=== PATIENT | male | born 1955 | race African-American/Black ===

== ENCOUNTER 2024-11-07 12:51 | Emergency (ER) | payer MEDICARE, MEDICAID ==
[~2024-11-07] VITALS: Ht 170.2 cm; Wt 77.9 kg
--- NOTE | 2024-11-07 13:38 | ED.PDOC ---
[place]. trauma (HPI) HPI Comments A 69 YEAR OLD MALE PRESENTS TO THE ED WITH COMPLAINT OF NOSE PAIN, JAW PAIN, HEADACHE, AND RIGHT HAND PAIN S/P FALL. PATIENT STATES HE WAS JOGGING AND THEN ACCIDENTALLY TRIPPED AND FELL FORWARD AND HIS NOSE AND JAW ON THE GROUND. PATIENT REPORTS HE IS NOW EXPERIENCING NOSE PAIN, JAW PAIN, A HEADACHE, AND RIGHT HAND PAIN. PATIENT DENIES NECK INJURY, LOC, FEVER, CHILLS, SHORTNESS OF BREATH, CHEST PAIN, ABDOMINAL PAIN, NAUSEA, VOMITING, HEADACHE, OR OTHER COMPLAINTS. NO OTHER SYMPTOMS OR MODIFYING FACTORS AT THIS TIME. PATIENT IS ALERT, ORIENTED X 4, AND HAS STEADY GAIT. Chief Complaint: Fall Injury Time Seen by MD: 12:56 Reviewed notes: Nurses Notes, Medications, Allergies Allergies: Coded Allergies: NO KNOWN ALLERGIES (Unverified , 11/07/24) Home Meds Active Scripts Amoxicillin & Pot Clavulanate (AUGMENTIN TABLET) 875 Mg Tb, 875 MG PO BID for 10 Days, #20 TAB Prov:SHAHNAZ PINA 11/07/24 Information Source: Patient Mode of Arrival: Ambulatory Severity: Moderate Timing: Days Duration: Since onset, Days Prehospital treatment: None Location: Face, (R) Hand, Mouth, Nose, Other (JAW) Location of laceration: None Mechanism: Fall Associated signs and symtoms: None Past Medical History PAST MEDICAL HISTORY: Denies Past Medical History (Other): NASAL BONE FX Surgical History: Denies all surgeries Family History Family History: Reviewed,noncontributory to illness Social History Smoker: Non-Smoker Alcohol: Denies ETOH Use Drugs: Denies Drug Use Lives In: Home Constitutional: denies: chills, diaphoresis, fatigue, fever, malaise, sweats, weakness, others EENTM: reports: nose pain, others (LEFT SIDE FACIAL PAIN AND LIPS PAIN ); denies: blurred vision, double vision, ear bleeding, ear discharge, ear drainage, ear pain, ear ringing, eye pain, eye redness, hearing loss, mouth pain, mouth swelling, nasal discharge, nose bleeding, nose congestion, photophobia, tearing, throat pain, throat swelling, voice changes Respiratory: denies: cough, hemoptysis, orthopnea, SOB at rest, shortness of breath, SOB with excertion, stridor, wheezing, others Cardiovascular: denies: chest pain, dizzy spells, diaphoresis, Dyspnea on exertion, edema, irregular heart beat, left arm pain, lightheadedness, palpitations, PND, syncope, others Gastrointestinal: denies: abdomen distended, abdominal pain, blood streaked bowels, constipated, diarrhea, dysphagia, difficulty swallowing, hematemesis, melena, nausea, poor appetite, poor fluid intake, rectal bleeding, rectal pain, vomiting, others Genitourinary: denies: burning, dysuria, flank pain, frequency, hematuria, incontinence, penile discharge, penile sore, pain, testicle pain, testicle swelling, urgency, others Neurological: denies: dizziness, fainting, headache, left sided numbness, left sided weakness, numbness, paresthesia, pre-existing deficit, right sided numbness, right sided weakness, seizure, speech problems, tingling, tremors, weakness, others Musculoskeletal: denies: back pain, gout, joint pain, joint swelling, muscle pain, muscle stiffness, neck pain, others Integumetry: reports: lesions, wounds; denies: bruises, change in color, change in hair/nails, dryness, laceration, lumps, rash, others Allergic/Immunocompromised: denies: Difficulty Healing, Frequent Infections, Hives, Itching, others Hematologic/Lymphatic: denies: anemia, blood clots, easy bleeding, easy bruising, swollen glands, others Endocrine: denies: excessive hunger, excessive sweating, excessive thirst, excessive urination, flushing, intolerance to cold, intolerance to heat, unexplained weight gain, unexplained weight loss, others Psychiatric: denies: anxiety, bipolar disorder, depression, hopeless, panic disorder, schizophrenia, sleepless, suicidal, others All Other Systems: Reviewed and Negative Physical Exam General Appearance: No Apparent Distress, Normal HEENT: PERRL/EOMI, Pharynx Normal, Sinuses (TENDERNESS LEFT MAXILLARY SINUSES WITH MILD SWELLING ON LEFT FACE, NO DEFORMITY. ), TMs Normal, Other (BONY TENDERNESS AND SWELLING ON NOSE, MILD NOSE BLEEDING, NO DEFORMITY. PUNCTURE WOUND INSIDE UPPER AND LOWER LIP, NO BLEEDING AND SWELLING. ) Neck: Full Range of Motion, Non-Tender, Normal, Normal Inspection Respiratory: Chest Non-Tender, Lungs Clear, No Accessory Muscle Use, No Respiratory Distress, Normal Breath Sounds Cardiovascular: No Edema, No JVD, No Murmur, No Gallop, Normal Peripheral Pulses, Regular Rate/Rhythm Breast Exam: Deferred Gastrointestinal: No Organomegaly, Non Tender, No Pulsatile Mass, Normal Bowel Sounds, Soft Genitalia: Deferred Pelvic: Deferred Rectal: Deferred Extremities: Decreased range of motion, No calf tenderness, Normal capillary refill, No pedal edema, Tender (AND MILD SWELLING ON RIGHT HAND, NO DEFORMITY. NORMAL ROM. ) Musculoskeletal : Apperance: Normal Neurologic: Alert, tank tester II-XII nml as Tested, No Motor Deficits, Normal Affect, Normal Mood, No Sensory Deficits Cerebellar Function: Normal Reflexes: Normal Skin: Dry, Normal Color, Warm, Wounds (PUNCTURE WOUND BILATERAL INSIDE LIPS. ) Peripheral Pulses: 2+ carotid (R), 2+ carotid (L), 2+ Radial (R), 2+ Radial (L) Lymphatic: No Adenopathy Was a procedure done? Was a procedure done?: No Differential Diagnosis Multiple Trauma: Closed Head Injury, Fractures, Cerebral Contusion, Abrasions, Contusion, Hematoma, Other (NOSE FRACTURE, NOSE CONTUSION, MUSCLE STRAIN, SPRAIN) Neck Injury: N/A X-Ray, Labs, Meds, VS Vital Signs Date Time Temp Pulse Resp B/P (MAP) Pulse Ox O2 Delivery O2 Flow Rate FiO2 11/07/24 14:28 98.3 11/07/24 14:18 98.3 73 15 136/84 (101) 97 98.3 11/07/24 13:23 98 18 97 Room Air 11/07/24 13:23 101.6 98 18 172/94 (120) 97 101.6 11/07/24 13:07 101.6 98 18 172/94 (120) 97 101.6 Current Medications Medications (Trade) Dose Ordered Sig/Jamey Route Start Time Stop Time Status Last Admin Acetaminophen (Tylenol Tablet Or Capsule) 1,000 mg ONCE ONCE PO 11/07/24 14:30 11/07/24 14:31 DC 11/07/24 14:28 Procedure: CT MAXILLOFACIAL WITHOUT Study Date and Requested Time: 11/07/2024 01:41 PM History: FALL Comparison: None Dose: CTDI: 66.77 mGy DLP: 1493.08 mGycm Technique: Multiplanar images obtained through the face without intravenous contrast. Findings: There is extensive left facial subcutaneous emphysema with mild right facial subcutaneous emphysema and associated soft tissue edema There is acute comminuted nasal bone fracture with associated soft tissue edema. There is septal hematoma with acute fracture of the nasal septum. Mid and inferior nasal cavity mucosal thickening. Acute comminuted fracture of the left anterior maxillary sinus wall with Acute fracture of the medial and lateral galvez of the left maxillary sinus. There is layering fluid with foci of air within the left maxillary sinus. There is mild mucoperiosteal thickening of the ethmoid air cells, frontal sinuses and right sphenoid sinus. Galvez appear intact. The orbits and globes unremarkable. The extraocular muscles visualized optic nerves unremarkable. There is right lateral pterygoid process fracture. Questionable fracture of the right posterior medial maxillary sinus wall. There is layering fluid foci of air within the right maxillary sinus. Motion artifact limits evaluation of the mandibular bone for fracture. Impression: Acute comminuted nasal bone fracture with acute fracture of the nasal septum and associated soft tissue edema and nasal septal hematoma. Acute fractures of the anterior, lateral and medial galvez of the left maxillary sinus with questionable acute fracture of the medial wall of the right maxillary sinus with acute fracture of the right lateral pterygoid process and associated layering fluids within the maxillary sinuses. Extensive left facial subcutaneous emphysema with mild right facial subcutaneous emphysema and associated soft tissue edema. ATED BY: ETHEL PINK DO DICTATED DATE/TIME: 11/07/24 1437 SIGNED BY: ETHEL PINK DO SIGNED DATE/TIME: 11/07/24 1437 CC: EXAM: CT HEAD WITHOUT CONTRAST INDICATION: FALL TECHNIQUE: CT of the head without intravenous contrast. Radiation Dose Information: CT Dose: CTDI volume is 58.57 mGy. Dose-length product is 1036.94 mGy*cm The dose indicators for CT are the volume Computed Tomography (CT) Dose Index (CTDIvol) and the Dose Length Product (DLP), and are measured in units of mGy and mGy-cm, respectively. These indicators are not patient dose, but values generated from the CT scanner acquisition factors. The report includes radiation exposure data for exposures received during this examination. COMPARISON: None FINDINGS: There is no evidence of acute intracranial hemorrhage, extra-axial collection, mass effect, midline shift, herniation or hydrocephalus. The ventricles, sulci and cisterns are age appropriate. The rubin-white differentiation is intact. Patchy periventricular and subcortical white matter hypoattenuation is nonspecific but may be related to small vessel ischemic disease. Comminuted fracture involving the anterior left maxillary sinus wall, lateral left maxillary sinus wall, and medial maxillary sinus wall. Extensive subcutaneous emphysema adjacent to the left maxillary sinus. Please refer to dedicated maxillary sinus for further evaluation. Comminuted left nasal bone fracture. The surrounding soft tissues and osseous structures are unremarkable. IMPRESSION: No acute intracranial abnormality. Comminuted fracture involving the anterior left maxillary sinus wall, lateral left maxillary sinus wall, and medial maxillary sinus wall. Extensive subcutaneous emphysema adjacent to the left maxillary sinus. Please refer to dedicated maxillary sinus for further evaluation. Comminuted left nasal bone fracture. ATED BY: MYLES LEDESMA MD DICTATED DATE/TIME: 11/07/24 1402 SIGNED BY: MYLES LEDESMA MD SIGNED DATE/TIME: 11/07/24 1402 CC: CLINICAL INDICATION: Trauma TECHNIQUE: 3 radiographic views of the right hand were obtained. Comparison: None FINDINGS/IMPRESSION: Avulsive fracture of the 3rd proximal phalanx head. ATED BY: JULIETA CRISTINA MD DICTATED DATE/TIME: 11/07/24 1412 SIGNED BY: JULIETA CRISTINA MD SIGNED DATE/TIME: 11/07/24 1412 CC: X-Ray, Labs, Meds, VS Comment EXTERNAL MEDICAL RECORDS REVIEWED: [NONE] INDEPENDENT HISTORIANS: [NONE] SOCIAL DETERMINANTS OF HEALTH: [NONE] LABS ORDERED: NONE REVIEWED AND INTERPRETED RESULTS: NONE IMAGING ORDERED: CT MAXFACE, CT BRAIN, XR HAND RT TREATMENTS ORDERED: TYLENOL 1G PO, FROG SPLINT APPLIED TO PATIENT'S RIGHT THIRD FINGER. PATIENT WAS INSTRUCTED TO BLOW HIS/HER NOSE TO REMOVE ANY POSSIBLE BLOOD CLOTS FROM HIS NOSE. +ANTERIOR NOSE BLEED. ONE SPRAY OF AFRIN WAS APPLIED TO THE PATIENT'S NOSTRILS AND THEY WERE MONITORED FOR 30 MINUTES AND NO BLEEDING WAS NOTED. PROCEDURES PERFORMED: NONE CRITICAL CARE TIME: NONE 3659: I HAVE CONSULTED DR. BARKSDALE REGARDING THIS PATIENT'S CASE AND IMAGING RESULTS AND HAS SAID THE PATIENT IS OKAY TO BE DISCHARGED HOME, BUT NEEDS TO FOLLOW UP WITH HIS PCP AND ENT SPECIALIST FOR FURTHER TREATMENT AND EVALUATION. BASED ON HISTORY OF PRESENT ILLNESS, AND PHYSICAL EXAM, PATIENT WILL BE DISCHARGED HOME. DISCUSSED PLAN FOR DISCHARGE HOME WITH RX [AUGMENTIN AND IBUPROFEN 800MG]. MEDICATION WARNINGS GIVEN. SHARED DECISION MAKING: PATIENT INSTRUCTED TO FOLLOW UP WITH PRIMARY CARE PROVIDER IN 1-2 DAYS FOR RE-EVALUATION OF SYMPTOMS. PATIENT VERBALIZES UNDERSTANDING TO RETURN TO ED FOR NEW OR WORSENING SYMPTOMS OR IF FOLLOW UP WITH PCP CANNOT BE OBTAINED. PATIENT FEELS COMFORTABLE GOING HOME AT THIS TIME. ALL QUESTIONS ADDRESSED AT TIME OF DISCHARGE. Images Reviewed?: Images reviewed and evaluated by me Time of 1ST Reevaluation: 15:38 Reevaluation 1ST: Improved Consultation: Other (ED PHYSICIAN: 1455: I HAVE CONSULTED DR. BARKSDALE REGARDING THIS PATIENT'S CASE AND IMAGING RESULTS AND HAS SAID THE PATIENT IS OKAY TO BE DISCHARGED HOME, BUT NEEDS TO FOLLOW UP WITH HIS PCP AND ENT SPECIALIST FOR FURTHER TREATMENT AND EVALUATION.) Patient Education/Counseling: Diagnosis, Treatment, Need For Follow Up Family Education/Counseling: Diagnosis, Treatment, Need For Follow Up Medical Screening: No EMC Exist At This Time Departure 1 Departure Time of Disposition: 15:38 Impression: Primary Impression: Nasal bone fracture Qualified Codes: S02.2XXA - Fracture of nasal bones, initial encounter for closed fracture Additional Impressions: Maxillary sinus fracture Qualified Codes: S02.40DA - Maxillary fracture, left side, initial encounter for closed fracture Fracture of proximal phalanx of digit of right hand Qualified Codes: S62.619A - Displaced fracture of proximal phalanx of unspecified finger, initial encounter for closed fracture Puncture wound of lip Qualified Codes: S01.531A - Puncture wound without foreign body of lip, initial encounter Status post fall Disposition: 01 HOME / SELF CARE / HOMELESS Condition: Stable Additional Instructions: FOLLOW-UP WITH PCP IN 1 TO 2 DAYS. TAKE MEDICATIONS PRESCRIBED. RETURN TO ED FOR ANY NEW OR WORSENING SYMPTOMS. e-Prescriptions Amoxicillin & Pot Clavulanate (AUGMENTIN TABLET) 875 Mg Tb 875 MG PO BID for 10 Days, #20 TAB Prov: SHAHNAZ PINA 11/07/24 Discharged With: Self, Relative Critical Care Note Critical Care Time?: No Stability Stability form required: No I personally scribed for SHAHNAZ PINA ([email or web address]) on 11/07/24 at 13:38. Electronically submitted by Jorge Medellin ([email or web address]). I personally scribed for SHAHNAZ PINA ([email or web address]) on 11/07/24 at 14:54. Electronically submitted by Jorge Medellin ([email or web address]). I personally scribed for SHAHNAZ PINA ([email or web address]) on 11/07/24 at 15:00. Electronically submitted by Jorge Medellin ([email or web address]). I personally scribed for SHAHNAZ PINA ([email or web address]) on 11/07/24 at 15:11. Electronically submitted by Jorge Medellin ([email or web address]). I personally scribed for SHAHNAZ PINA PA ([email or web address]) on 11/07/24 at 15:29. Electronically submitted by Jorge Medellin ([email or web address]). SHAHNAZ PINA November 07, 2024 13:38
--- NOTE | 2024-11-07 14:04 | DVH ---
EXAM: CT HEAD WITHOUT CONTRAST INDICATION: FALL TECHNIQUE: CT of the head without intravenous contrast. Radiation Dose Information: CT Dose: CTDI volume is 58.57 mGy. Dose-length product is 1036.94 mGy*cm The dose indicators for CT are the volume Computed Tomography (CT) Dose Index (CTDIvol) and the Dose Length Product (DLP), and are measured in units of mGy and mGy-cm, respectively. These indicators are not patient dose, but values generated from the CT scanner acquisition factors. The report includes radiation exposure data for exposures received during this examination. COMPARISON: None FINDINGS: There is no evidence of acute intracranial hemorrhage, extra-axial collection, mass effect, midline s hift, herniation or hydrocephalus. The ventricles, sulci and cisterns are age appropriate. The rubin-white differentiation is intact. Patchy periventricular and subcortical white matter hypoattenuation is nonspecific but may be related to small vessel ischemic disease. Comminuted fracture involving the anterior left maxillary sinus wall, lateral left maxillary sinus wa ll, and medial maxillary sinus wall. Extensive subcutaneous emphysema adjacent to the left maxillary sinus. Please refer to dedicated maxillary sinus for further evaluation. Comminuted left nasal bone fracture. The surrounding soft tissues and osseous structures are unremarkable. IMPRESSION: No acute intracranial abnormality. Comminuted fracture involving the anterior left maxillary sinus wall, lateral left maxillary sinus wa ll, and medial maxillary sinus wall. Extensive subcutaneous emphysema adjacent to the left maxillary sinus. Please refer to dedicated maxillary sinus for further evaluation. Comminuted left nasal bone fracture.
--- NOTE | 2024-11-07 14:14 | DVH ---
CLINICAL INDICATION: Trauma TECHNIQUE: 3 radiographic views of the right hand were obtained. Comparison: None FINDINGS/IMPRESSION: Avulsive fracture of the 3rd proximal phalanx head.
[2024-11-07 14:18] VITALS: BP 136/84; PULSE 73; RESP 15; O2SAT 97
[2024-11-07] MEDS: ACETAMINOPHEN 325 MG TAB PO ONE (14:23)
[2024-11-07 14:28] VITALS: TEMP 98.3
[2024-11-07] MEDS: ACETAMINOPHEN 500 MG TAB or CAP PO ONE (14:28)
--- NOTE | 2024-11-07 14:40 | DVH ---
Procedure: CT MAXILLOFACIAL WITHOUT Study Date and Requested Time: 2024 01:41 PM History: FALL Comparison: None Dose: CTDI: 66.77 mGy DLP: 1493.08 mGycm Technique: Multiplanar images obtained through the face without intravenous contrast. Findings: There is extensive left facial subcutaneous emphysema with mild right facial subcutaneous emphysema a nd associated soft tissue edema There is acute comminuted nasal bone fracture with associated soft tissue edema. There is septal miguelina kevin with acute fracture of the nasal septum. Mid and inferior nasal cavity mucosal thickening. Acute comminuted fracture of the left anterior maxillary sinus wall with Acute fracture of the medial and lateral galvez of the left maxillary sinus. There is layering fluid with foci of air within the l eft maxillary sinus. There is mild mucoperiosteal thickening of the ethmoid air cells, frontal sinuses and right sphenoid sinus. Galvez appear intact. The orbits and globes unremarkable. The extraocular muscles visualized optic ne rves unremarkable. There is right lateral pterygoid process fracture. Questionable fracture of the right posterior media l maxillary sinus wall. There is layering fluid foci of air within the right maxillary sinus. Motion artifact limits evaluation of the mandibular bone for fracture. Impression: Acute comminuted nasal bone fracture with acute fracture of the nasal septum and associated soft tiss ue edema and nasal septal hematoma. Acute fractures of the anterior, lateral and medial galvez of the left maxillary sinus with questionab le acute fracture of the medial wall of the right maxillary sinus with acute fracture of the right la teral pterygoid process and associated layering fluids within the maxillary sinuses. Extensive left facial subcutaneous emphysema with mild right facial subcutaneous emphysema and associ ated soft tissue edema.
[2024-11-07] MEDS: OXYMETAZOLINE HCL 0.05 % NASAL SPRAY 15ML EACHNOSTRI ONE (15:14)
[2024-11-07] MEDS ORDERED: AUG875T PO (15:28)
== END 2024-11-07 15:38 | disposition home or self-care (01) ==
LOC: ER 12:51
DX: S02.2XXA Fracture of nasal bones, initial encounter for closed fracture (principal); S02.40DA Maxillary fracture, left side, initial encounter for closed fracture; S62.642A Nondisplaced fracture of proximal phalanx of right middle finger, initial encounter for closed fracture; S01.531A Puncture wound without foreign body of lip, initial encounter; Z79.899 Other long term (current) drug therapy; W01.0XXA Fall on same level from slipping, tripping and stumbling without subsequent striking against object, initial encounter; Y93.89 Activity, other specified; Y92.89 Other specified places as the place of occurrence of the external cause; Y99.8 Other external cause status
CPT/HCPCS: 29130; 70450; 70486; 73130